=== PATIENT | male | born 1950 | race Caucasian/White ===

== ENCOUNTER 2020-03-30 14:01 | Emergency (ER) | payer OTHER ==
[~2020-03-30] VITALS: Ht 162.6 cm; Wt 83.9 kg
[2020-03-30 14:14] VITALS: BP 127/80; Ht 162.6 cm; Wt 83.9 kg
== END 2020-03-30 14:41 | disposition home or self-care (01) ==
LOC: ED 14:01
DX: B02.9 Zoster without complications (principal)